=== PATIENT | female | born 2000 | race Caucasian/White ===

== ENCOUNTER 2018-01-15 04:34 | Inpatient (IN) | payer OTHER ==
--- NOTE | 2018-01-15 04:48 | PDOC ---
Attending Attestation - Resident Resident Name: Loreta Arreola - ED Attending Attestation I have performed the following: I have examined & evaluated the patient, The case was reviewed & discussed with the resident, I agree w/resident's findings & plan - HPI HPI: 01/15/18 05:34 Pt has diffuse abd pain. Originally came with epigastric pain and vomiting after eating tacos. Now with pain all over and rebound. No dysuria and no flank pain, She is 15 weeks and this is her 1st . She states that sono in this preg revealed a normal fetus in her uterus. - Physicial Exam PE: 01/15/18 06:01 Agree with resident exam, except that pt has diffuse abd tenderness with rebound and guarding. Afebrile. - Medical Decision Making 01/15/18 06:13 Pt will be signed out to the day team. They can follow labs and get the proper sono imaging to figure out if pt has GB stones vs appy vs other pathology. I requested an official pelvic sono to visualize the fetus.
[2018-01-15] MEDS ORDERED: RANITIDINE HCL 150 MG/10 ML UNIT-DOSE PO ONE ×2 (05:06→05:34)
[2018-01-15] MEDS ORDERED: LIDOCAINE VISCOUS 2% ORAL/TOP 20 ML UNIT-DOSE CUP MM ONE (05:06)
[2018-01-15] MEDS ORDERED: MAG HYDROX/AL HYDROX/SIMETH 30 ML UNIT-DOSE CUP PO ONE (05:06)
[2018-01-15] MEDS ORDERED: MAG HYDROX/AL HYDROX/SIMETH 30 ML UNIT-DOSE CUP ONE (05:15)
[2018-01-15] MEDS ORDERED: ONDANSETRON *ODT* 4 MG TABLET SL ONE (05:20)
[2018-01-15] MEDS ORDERED: ONDANSETRON *ODT* 4 MG TABLET ONE (05:21)
[2018-01-15 05:35] LABS: HCG,QUALITATIVE URINE Positive
--- NOTE | 2018-01-15 05:35 | PDOC ---
History of Present Illness - General Chief Complaint: Pain Stated Complaint: 16 WEEKS /PAIN Time Seen by Provider: 01/15/18 04:44 - History of Present Illness Initial Comments: Osiris Camilo is an otherwise healthy 17yo woman at 16wks who presnts with acute onset of upper abdominal pain about an hour prior to arriving in the ED. She reports that she had been feeling well and was in bed, laying down, eating tacos when she started to have severe pain. She describes the pain as sharp, non-radiating, and 8-9/10 in intensity. She has associated nausea but denies episodes of vomiting at home, change in bowel habits, lower abdominal or back pain, vaginal discharge, vaginal bleeding/spotting, or dysuria. She has been following with OB and was told everything is going well with her . She takes vitamins at home and has not and any other recent issues. She has never had any similar pain in the past. Ms Camilo denies any other illness, and she has never had any abdominal surgeries. Past History - Past Medical History Allergies/Adverse Reactions: Allergies Allergy/AdvReac Type Severity Reaction Status Date / Time No Known Allergies Allergy Verified 01/15/18 05:13 - Reproductive History Is Patient Now?: Yes (#): 1 Para: 0 Therapeutic (s) & number: No Spontaneous : 0 - Suicide/Smoking/Psychosocial Hx Smoking History: Never smoked Information on smoking cessation initiated: No Hx Alcohol Use: No Drug/Substance Use Hx: No Review of Systems - Review of Systems Comments:: General: No fevers, no chills, no weight or appetite change, no malaise HEENT: No changes in vision, no changes in hearing, no congestion, no sore throat CV: No chest pain, no palpitations, no LE edema Pulm: No SOB, no cough, no wheezing GI: +Abd pain, vomiting. No change in bowel habits, no melena : No frequency, no urgency, no dysuria Musc: No back pain, no joint swelling, no recent injury Skin: No rash, no lesions, no erythema Endo: No excessive thirst, no heat/cold intolerance Heme: No unusual bruising or bleeding, no swollen glands Neuro: No syncope, no numbness/tingling, no focal weakness Vasc: No claudication Psych: No recent change in mood, no SI or HI *Physical Exam - Vital Signs Last Vital Signs Temp Pulse Resp BP Pulse Ox 98.2 F 76 20 110/60 98 01/15/18 04:45 01/15/18 04:45 01/15/18 04:45 01/15/18 04:45 01/15/18 04:45 - Physical Exam Comments: General: Comfortable, no acute distress HEENT: PERRL, EOMI, MMM, voice normal, normal neck ROM, no LAD Cards: RRR, no murmur appreciated Pulm: Comfortable on room air, clear to auscultation bilaterally Abd: Soft, nondistended, gravid. Epigastric and b/l upper abd TTP, R>L : No CVA tenderness Ext: Atraumatic. No LE edema. ROM intact. Strength 5/5 and equal bilaterally Vasc: Extremities WWP Skin: Normal color, no rashes or lesions Neuro: A&Ox3, CN grossly intact, normal speech, motor/sensory grossly intact and symmetric Psych: Mood appropriate to situation Moderate Sedation - Procedure Monitoring Vital Signs: Procedure Monitoring Vital Signs Temperature 98.2 F 01/15/18 04:45 Pulse Rate 76 01/15/18 04:45 Respiratory Rate 20 01/15/18 04:45 Blood Pressure 110/60 01/15/18 04:45 O2 Sat by Pulse Oximetry (%) 98 01/15/18 04:45 ED Treatment Course - LABORATORY CBC & Chemistry Diagram: 01/15/18 05:49 01/15/18 05:49 Medical Decision Making - Medical Decision Making 01/15/18 05:35 Osiris Camilo is a 17yo otherwise healthy woman at 16wks who presents with acute onset of upper abdominal pain that started an hour before presenting in the ED after eating tacos while in bed. She had an episode of bilious vomiting in the ED. - Differential includes gastritis, GERD/reflux, cholecystitis, pancreatitis. Given , cannot rule out appendicitis despite upper abdominal pain. - SL zofran for vomiting. Maalox and ranitidine for possible gastritis or reflux. - CBC, CMP, mag, phos, type and screen, coags, bHCG to evaluate for abnormalities and for possible surgical pathology - UA, urine preg, urine culture to verify and evaluate for abnormalities. - No vaginal bleeding, vaginal discharge, lower abdominal pain, or back pain concerning for miscarriage, infection, PID 01/15/18 06:13 - Bedside US completed. US showed good movement, FHR 138, estimated gestational age 17w0d by [employer]. - RUQ bedside US with suspicion for stone in the neck of the gallbladder, but pt did not tolerate exam well secondary to pain - 1L IVF ordered per Dr Patel. 1000mg IV acetaminophen for pain control - Nausea improved, no additional vomiting - US and RUQ US ordered, to be completed after ultrasound opens in the morning. 01/15/18 06:51 - Additional 1L IVF bolus ordered - Labs notable for WBC 12.7. Otherwise unremarkable. UA negative for UTI, urine preg positive. bHCG pending. - Will reassess pain after completing acetaminophen. May need additional pain control. Patient to be signed out to morning team for remainder of care. Dispo depending on US results. Seen and discussed with Dr Patel. Loreta Arreola PGY1 *DC/Admit/Observation/Transfer Diagnosis at time of Disposition: Abdominal pain - Referrals - Patient Instructions - Post Discharge Activity
[2018-01-15 05:36] LABS: URINE APPEARANCE CLEAR; URINE BILIRUBIN NEGATIVE (<2.0 mg/dL); URINE COLOR YELLOW; URINE GLUCOSE (UA) NEGATIVE (NEGATIVE); URINE KETONE NEGATIVE (NEGATIVE); URINE LEUK ESTERASE TRACE (NEGATIVE); URINE NITRITE NEGATIVE (NEGATIVE); URINE PROTEIN NEGATIVE (NEGATIVE); URINE UROBILINOGEN NEGATIVE mg/dL (0.2-1.0)
[2018-01-15] MEDS ORDERED: SODIUM CHLORIDE 0.9% 500 ML INFUS.BAG IV ONE ×2 (05:36→06:43)
[2018-01-15 05:39] LABS: EPI CELLS RARE /HPF (FEW); URINE BACTERIA RARE /hpf (NONE SEEN); URINE MUCUS RARE
[2018-01-15 06:01] LABS: BASO % 0.2 % (0-2.0); EOS % 0.3 % (0-4.5); HEMATOCRIT 34.2 % (32.4-45.2); HEMOGLOBIN 11.5 GM/dL (10.7-15.3); LYMPH % 10.8 % (8-40); MCH 28.7 pg (25.7-33.7); MCHC 33.6 g/dl (32.0-36.0); MEAN CELL VOLUME 85.3 fl (80-96); MEAN PLT VOLUME 9.4 fl (7.5-11.1); MONO % 3.9 % (3.8-10.2); NEUT % 84.8 % (42.8-82.8); PLATELET COUNT 217 K/MM3 (134-434); RBC 4.01 M/mm3 (3.60-5.2); RDW 13.3 % (11.6-15.6); WHITE BLOOD COUNT 12.7 K/mm3 (4.0-10.0)
[2018-01-15] MEDS ORDERED: ACETAMINOPHEN 1000 MG/100 ML VIAL (NON FORMULARY) IVPB ONE (06:10)
[2018-01-15 06:11] LABS: INR 0.99 (0.83-1.09); PROTHROMBIN TIME (PATIENT) 11.7 SEC (9.7-13.0)
[2018-01-15 06:14] LABS: ACTIVATED PTT 25.4 SECONDS (25.2-36.5)
[2018-01-15 06:23] LABS: ALBUMIN 3.3 g/dl (3.4-5.0); ALK PHOS 62 U/L (45-117); ANION GAP 12 MMOL/L (8-16); BILIRUBIN,TOTAL 0.2 mg/dL (0.2-1); BLOOD UREA NITROGEN 8 mg/dL (7-18); CALCIUM 8.5 mg/dL (8.5-10.1); CHLORIDE 105 mmol/L (98-107); CO2 21 mmol/L (21-32); CREATININE 0.5 mg/dL (0.55-1.3); GLUCOSE,RANDOM 122 mg/dL (74-106); MAGNESIUM 1.8 mg/dL (1.8-2.4); POTASSIUM 3.8 mmol/L (3.5-5.1); SGOT/AST 7 U/L (15-37); SGPT/ALT 19 U/L (13-61); SODIUM 137 mmol/L (136-145); TOT PROT 7.1 g/dl (6.4-8.2)
[2018-01-15] MEDS ORDERED: ACETAMINOPHEN INJECTION 100 ML IVPB ONE (06:40)
--- NOTE | 2018-01-15 07:13 | PDOC ---
*Physical Exam - Vital Signs Last Vital Signs Temp Pulse Resp BP Pulse Ox 98.2 F 76 20 110/60 98 01/15/18 04:45 01/15/18 04:45 01/15/18 04:45 01/15/18 04:45 01/15/18 04:45 ED Treatment Course - LABORATORY CBC & Chemistry Diagram: 01/15/18 05:49 01/15/18 05:49 - ADDITIONAL ORDERS Additional order review: Laboratory Results 01/15/18 01/15/18 01/15/18 05:49 05:49 04:45 PT with INR 11.70 INR 0.99 PTT (Actin FS) 25.4 Sodium 137 Potassium 3.8 Chloride 105 Carbon Dioxide 21 Anion Gap 12 BUN 8 Creatinine 0.5 L Creat Clearance w eGFR > 60 Random Glucose 122 H Calcium 8.5 Phosphorus 4.0 Magnesium 1.8 Total Bilirubin 0.2 AST 7 L ALT 19 Alkaline Phosphatase 62 Total Protein 7.1 Albumin 3.3 L Urine Color Yellow Urine Appearance Clear Urine pH 6.0 Ur Specific Brandon 1.018 Urine Protein Negative Urine Glucose (UA) Negative Urine Ketones Negative Urine Blood Negative Urine Nitrite Negative Urine Bilirubin Negative Urine Urobilinogen Negative Ur Leukocyte Esterase Trace Urine WBC (Auto) 3 Urine RBC (Auto) 1 Ur Epithelial Cells Rare Urine Bacteria Rare Urine Mucus Rare Urine HCG, Qual Positive 01/15/18 05:49 RBC 4.01 MCV 85.3 MCHC 33.6 RDW 13.3 MPV 9.4 Neutrophils % 84.8 H Lymphocytes % 10.8 Monocytes % 3.9 Eosinophils % 0.3 Basophils % 0.2 - Medications Given in the ED: ED Medications Discontinued Medications Generic Name Dose Route Start Last Admin Trade Name Alesha PRN Reason Stop Dose Admin Acetaminophen 1,000 mg 01/15/18 06:10 01/15/18 06:46 Ofirmev Injection - IVPB 01/15/18 06:11 1,000 mg ONCE ONE Administration Al Hydroxide/Mg Hydroxide 30 ml 01/15/18 05:06 01/15/18 05:22 Mylanta Oral Suspension - PO 01/15/18 05:07 30 ml ONCE ONE Administration Ondansetron HCl 4 mg 01/15/18 05:20 01/15/18 05:22 Zofran Odt - SL 01/15/18 05:21 4 mg ONCE ONE Administration Ranitidine HCl 150 mg 01/15/18 05:34 01/15/18 05:54 Zantac Oral Solution - PO 01/15/18 05:35 150 mg ONCE ONE Administration Sodium Chloride 1,000 ml 01/15/18 05:36 01/15/18 05:54 Normal Saline - IV 01/15/18 05:37 1,000 ml ONCE ONE Administration Sodium Chloride 1,000 ml 01/15/18 06:43 01/15/18 06:47 Normal Saline - IV 01/15/18 06:44 1,000 ml ONCE ONE Administration Medical Decision Making - Medical Decision Making 01/15/18 07:[address] Arreola. Ms. Camilo is a 17 yo at 16 weeks w/ full care who presented for evaluation of upper abdominal pain after eating tacos last night. Patient given zofran, maalox, ranitidine, acetaminophen by prior team. Bedside US revealed concern for cholecystitis. Formal US ordered. 01/15/18 08:12 Patient currently pending US evaluation. 01/15/18 09:46 US significant for multiple gall stones with sludge noted. Given patients excessive pain and status will admit for pain control and surgery consult. US negative for acute process. 16w 3d fetus noted w/ HR 142. 01/15/18 09:49 Hospitalist and Surgery paged for consult. 01/15/18 09:58 Patient admitted for pain control and further follow-up. 01/15/18 10:11 Discussed with surgery who recommended rocephin for prophylaxis and will consult. Will comply with recommendations. *DC/Admit/Observation/Transfer Diagnosis at time of Disposition: Biliary colic Abdominal pain Qualifiers: Abdominal location: unspecified location Qualified Code(s): R10.9 - Unspecified abdominal pain - Discharge Dispostion Decision to Admit order: Yes - Referrals Referrals: Yadiel Giron MD [Primary Care Provider] - - Patient Instructions - Post Discharge Activity
[2018-01-15] MEDS ORDERED: morphine CARPU-JECT 2 MG/1 ML DISP.SYRIN IVPUSH ONE (09:48)
[2018-01-15] MEDS ORDERED: ONDANSETRON 4 MG/2 ML VIAL IVPUSH PRN (10:01)
[2018-01-15] MEDS ORDERED: ACETAMINOPHEN 1000 MG/100 ML VIAL (NON FORMULARY) IVPB PRN (10:02)
--- NOTE | 2018-01-15 10:22 | HP ---
Admitting History and Physical - Admission Chief Complaint: Rt UQ abd pain History of Present Illness: 17 yrs old F 16 wks lives with family present to ED with sudden onset sever RT UQ and epigastric pain started this am , last night patient ate Tacos and slept comfortably pain was sever 10/10 radites to back associated with nause and vomiting vomited 3-4 time billipis fluid no diarrhea, hemetmesis or melena, lasy BM was yesterday.No fever, chills or dysuria. In the ED w/u shows multiple gall stone normal CBD no clinical signs of acutecholycystitis. History Source: Patient - Past Medical History ...LMP: 09/12/17 ...: Yes - Past Surgical History Past Surgical History: Yes: Appendectomy - Smoking History Smoking history: Never smoked - Alcohol/Substance Use Hx Alcohol Use: No - Social History Usual Living Arrangement: Yes: With Spouse History of Recent Travel: No Home Medications - Allergies Allergies/Adverse Reactions: Allergies Allergy/AdvReac Type Severity Reaction Status Date / Time No Known Allergies Allergy Verified 01/15/18 05:13 - Home Medications Home Medications: Ambulatory Orders No122/Iron/Folic Acid [ Multi Tablet] 1 each PO DAILY 01/15/18 Family Disease History - Family Disease History Family History: Unremarkable Review of Systems - Review of Systems Constitutional: denies: Chills, Diaphoresis, Fever, Lethargy Eyes: denies: Blind Spots, Blurred Vision HENT: denies: Difficult Swallowing, Ear Discharge, Ear Pain Neck: denies: Decreased ROM, Lumps, Pain on Movement Cardiovascular: denies: Chest Pain, Edema Respiratory: denies: Cough, Exercise Intolerance Gastrointestinal: reports: Abdominal Pain, Nausea, Vomiting. denies: Diarrhea Genitourinary: denies: Burning, Discharge Musculoskeletal: denies: Back Pain, Decreased ROM Integumentary: denies: Blister, Bruising Neurological: denies: Change in LOC, Change in Speech, Confusion Endocrine: denies: Excessive Sweating, Flushing Psychiatric: denies: Altered Sleep Pattern, Anxiety, Depression Pain Intensity: 6 Physical Examination Vital Signs: Vital Signs Temperature 98 F 01/15/18 07:30 Pulse Rate 78 01/15/18 07:30 Respiratory Rate 18 01/15/18 07:30 Blood Pressure 120/66 01/15/18 07:30 O2 Sat by Pulse Oximetry (%) 100 01/15/18 07:30 Constitutional: Yes: Well Nourished, No Distress HENT: Yes: Atraumatic, Normocephalic, Other (MM moist no anemia no PERRLA EOMI) Neck: Yes: Supple, Trachea Midline. No: Decreased ROM, Lymphadenopathy Cardiovascular: Yes: Regular Rate and Rhythm, S1, S2. No: Bruit, JVD, Gallop, Murmur Respiratory: Yes: Regular, CTA Bilaterally Gastrointestinal: Yes: Normal Bowel Sounds, Tenderness, Epigastrium, Tenderness , Rebound Renal/: No: Bladder Distention Musculoskeletal: No: Back Pain, Joint Stiffness Extremities: No: Calf Tenderness Edema: No Peripheral Pulses: Left Doralis Pedis: 2+, Right Dorsalis Pedis: 2+ Neurological: Yes: Alert, Oriented ...Motor Strength: LUE, LLE, RUE, RLE Labs: CBC, BMP 01/15/18 05:49 01/15/18 05:49 CBC,CMP WBC 12.7 K/mm3 (4.0-10.0) H 01/15/18 05:49 RBC 4.01 M/mm3 (3.60-5.2) 01/15/18 05:49 Hgb 11.5 GM/dL (10.7-15.3) 01/15/18 05:49 Hct 34.2 % (32.4-45.2) 01/15/18 05:49 MCV 85.3 fl (80-96) 01/15/18 05:49 MCH 28.7 pg (25.7-33.7) 01/15/18 05:49 MCHC 33.6 g/dl (32.0-36.0) 01/15/18 05:49 RDW 13.3 % (11.6-15.6) 01/15/18 05:49 Plt Count 217 K/MM3 (134-434) 01/15/18 05:49 MPV 9.4 fl (7.5-11.1) 01/15/18 05:49 Absolute Neuts (auto) 10.8 K/mm3 (1.5-8.0) H 01/15/18 05:49 Neutrophils % 84.8 % (42.8-82.8) H 01/15/18 05:49 Lymphocytes % 10.8 % (8-40) 01/15/18 05:49 Monocytes % 3.9 % (3.8-10.2) 01/15/18 05:49 Eosinophils % 0.3 % (0-4.5) 01/15/18 05:49 Basophils % 0.2 % (0-2.0) 01/15/18 05:49 Nucleated RBC % 0 % (0-0) 01/15/18 05:49 Sodium 137 mmol/L (136-145) 01/15/18 05:49 Potassium 3.8 mmol/L (3.5-5.1) 01/15/18 05:49 Chloride 105 mmol/L (98-107) 01/15/18 05:49 Carbon Dioxide 21 mmol/L (21-32) 01/15/18 05:49 Anion Gap 12 MMOL/L (8-16) 01/15/18 05:49 BUN 8 mg/dL (7-18) 01/15/18 05:49 Creatinine 0.5 mg/dL (0.55-1.3) L 01/15/18 05:49 Creat Clearance w eGFR > 60 (>60) 01/15/18 05:49 Random Glucose 122 mg/dL (74-106) H 01/15/18 05:49 Calcium 8.5 mg/dL (8.5-10.1) 01/15/18 05:49 Phosphorus 4.0 mg/dL (2.5-4.9) 01/15/18 05:49 Magnesium 1.8 mg/dL (1.8-2.4) 01/15/18 05:49 Total Bilirubin 0.2 mg/dL (0.2-1) 01/15/18 05:49 AST 7 U/L (15-37) L 01/15/18 05:49 ALT 19 U/L (13-61) 01/15/18 05:49 Alkaline Phosphatase 62 U/L (45-117) 01/15/18 05:49 Creatine Kinase 30 IU/L (26-192) 01/15/18 05:49 Troponin I < 0.02 ng/ml (0.00-0.05) 01/15/18 05:49 Total Protein 7.1 g/dl (6.4-8.2) 01/15/18 05:49 Albumin 3.3 g/dl (3.4-5.0) L 01/15/18 05:49 Beta HCG, Quant 8696.3 mIU/ml 01/15/18 05:49 Imaging - Results Ultrasound: Report Reviewed (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 Code(s): K80.50 - CALCULUS OF BILE DUCT W/O CHOLANGITIS OR CHOLECYST W/O OBST (2) Nausea & vomiting Code(s): R11.2 - NAUSEA WITH VOMITING, UNSPECIFIED (3) Obesity (BMI 30.0-34.9) Assessment/Plan: Nutrition consult Code(s): E66.9 - OBESITY, UNSPECIFIED
[2018-01-15] MEDS ORDERED: MORPHINE SULFATE 2 MG/ML VIAL ONE (10:28)
[2018-01-15] MEDS ORDERED: FAMOTIDINE 20 MG/50 ML IVPB 0 MG/0 ML MG IVPB ONE (10:28)
[2018-01-15 10:37] LABS: LIPASE 141 U/L (73-393)
[2018-01-15] MEDS ORDERED: CEFTRIAXONE 1 GM in DEXTROSE 5%-WATER - 50 ML IVPB ONE (11:00)
[2018-01-15] MEDS ORDERED: CEFTRIAXONE 1 GM/50 ML BAG ONE (11:18)
[2018-01-15] MEDS: D5-1/2NS+10 MEQ KCL - 10 MEQ/1,000 ML INFUS.BAG IV SCH ×2 (11:28→22:45)
--- NOTE | 2018-01-15 17:26 | PN ---
Progress Note (short form) - Note Progress Note: surgery pt seen and examined. full consult dictated. 17f 16weeks with ruq abd pain. wbc 12. lfts normal. u/s unremarkable except gallstones. on exam abd is soft, localized ruq tenderness with rebound Plan- clinically acute cholecystitis. recommend HIDA or CT for better evaluation but patient refuses because of radiation risk to fetus. Agree with medical management. agree with rocephin. Would keep npo today and possible advance diet to low fat as pain improves. Can consider surgery now but patient faces risk to and not agreeable. cont medical management. suggest elective cholecystectomy after delivery. I am available for cholecystectomy if patient wants surgery at this time. This could be done at [facility] since the fetus in not viable. Once fetus is viable surgery should only be done at a tertiary care center.
--- NOTE | 2018-01-15 18:05 | CONS ---
DATE OF CONSULTATION: 01/15/2018 REASON FOR CONSULTATION: Acute cholecystitis, cholelithiasis. This is an emergency room consultation at the request of the emergency room physician. The patient was subsequently seen and examined in the emergency room. BRIEF HISTORY: This is a 17-year-old female who is currently 16 weeks , who presents with severe right upper quadrant pain radiating to her back. She also had nausea and vomiting. Her laboratories were unremarkable with the exception of an elevated white blood cell count of 12,000 and she went for an ultrasound of her gallbladder, which showed gallstones without thickening or pericholecystic fluid. Because of the right upper quadrant tenderness, a request was made for surgical evaluation and my recommendations were to start her on Rocephin antibiotic for possible acute cholecystitis. The patient states her pain is somewhat better, but still present. PAST MEDICAL HISTORY: Otherwise negative. PAST SURGICAL HISTORY: Significant for an appendectomy done laparoscopically. SOCIAL HISTORY: Negative for alcohol, negative for tobacco. HOME MEDICATIONS: vitamins. She has no known drug allergies. FAMILY HISTORY: Negative for malignancy in immediate family. REVIEW OF SYSTEMS: General: She denies fatigue or malaise. Cardiac: She denies chest pain or palpitations. Respiratory: She denies shortness of breath or wheeze. Gastrointestinal: As stated in HPI. Denies blood in her vomit, denies diarrhea, denies blood in her stool. Genitourinary: She denies dysuria. Musculoskeletal: She admits to back pain, but she states that is usual for her . Psychiatric: She denies anxiety, depression, or hearing voices. PHYSICAL EXAMINATION: General: This is a well-developed, well-nourished 17-year-old female in no distress. Vital Signs: She is afebrile. Her vital signs are stable. HEENT: Her head is normocephalic. Sclerae anicteric. Neck: Supple. Chest: Clear. Abdomen: Soft. She has localized right upper quadrant tenderness with a positive Deutsch sign. There is rebound in the right upper quadrant. The remainder of her abdominal examination is benign with the exception of fullness, suprapubic, consistent with her . She has well-healed laparoscopic scars. Extremities: She has trace edema. REVIEW OF LABORATORY: Her liver function tests are normal. Her white blood cell count is 12,000. IMAGING: As stated in HPI. ASSESSMENT: A 17-year-old female with right upper quadrant pain, nausea, and vomiting with right upper quadrant tenderness with rebound and ultrasound showing gallstones as well as a distended gallbladder without sonographic signs of acute cholecystitis. Clinically, I suspect this is acute cholecystitis, as her symptoms have lasted more than 6 hours and she does have localized tenderness with mild peritoneal findings in the right upper quadrant; however, another diagnosis can be missed in and, therefore, patient has been offered a CT scan as well as a HIDA scan. She declines both of these options because of radiation risk of exposure to her fetus. She understands that if we misdiagnose a serious infection that she has risk of sepsis, even . At this point, she appears to be clinically well. Would continue Rocephin antibiotic and treat medically for acute cholecystitis. I have also offered her surgery for her acute cholecystitis, which is feasible in the 2nd trimester; however, there is always a risk of loss of the . Because of this, patient is currently declining surgery and wishes to attempt medical management. If medical management is successful, patient should consider a cholecystectomy as an outpatient after delivery. If she changes her mind and wishes to undergo surgery, I am available for cholecystectomy; however, in the future, once she enters the 3rd trimester, any surgery, if necessary, should be done at a tertiary care center, as if the fetus is delivered, she would need to be somewhere where they have ICU capability. In either event, continue IV antibiotic. Another option would be percutaneous drainage of her gallbladder, which she also declines because she states she does not wish to have a drain. At this point, will allow her to be treated medically and be available if she wishes to have surgery now; otherwise, we will see as an outpatient. Keep her n.p.o. today and possibly advance to a low-fat diet over the next 1 to 2 days, pending clinical course. DO BERNARDA ORTIZ/[id number]
[2018-01-15] MEDS: FAMOTIDINE 20 MG/50 ML IVPB 20 MG/50 ML MG IVPB SCH (21:17)
[2018-01-16 01:59] VITALS: BMI 33.0
[2018-01-16 07:37] LABS: BASO % 0.4 % (0-2.0); EOS % 0.8 % (0-4.5); HEMOGLOBIN 10.7 GM/dL (10.7-15.3); MCH 29.2 pg (25.7-33.7); MCHC 33.6 g/dl (32.0-36.0); MEAN CELL VOLUME 86.8 fl (80-96); MONO % 6.5 % (3.8-10.2); NEUT % 75.3 % (42.8-82.8); PLATELET COUNT 213 K/MM3 (134-434); RBC 3.68 M/mm3 (3.60-5.2); RDW 13.4 % (11.6-15.6); WHITE BLOOD COUNT 9.9 K/mm3 (4.0-10.0)
[2018-01-16 08:31] LABS: ALBUMIN 2.7 g/dl (3.4-5.0); ALK PHOS 56 U/L (45-117); ANION GAP 10 MMOL/L (8-16); BILIRUBIN,TOTAL 0.6 mg/dL (0.2-1); BLOOD UREA NITROGEN 4 mg/dL (7-18); CALCIUM 7.8 mg/dL (8.5-10.1); CHLORIDE 106 mmol/L (98-107); CO2 21 mmol/L (21-32); CREATININE 0.5 mg/dL (0.55-1.3); GLUCOSE,RANDOM 84 mg/dL (74-106); POTASSIUM 3.6 mmol/L (3.5-5.1); SGOT/AST 15 U/L (15-37); SGPT/ALT 19 U/L (13-61); SODIUM 137 mmol/L (136-145); TOT PROT 6.3 g/dl (6.4-8.2)
[2018-01-16] MEDS ORDERED: FLU VACCINE QUAD 60 MCG/0.5 ML (MDV 18-19) IM ONE (10:00)
[2018-01-16] MEDS: D5-1/2NS+10 MEQ KCL - 10 MEQ/1,000 ML INFUS.BAG IV SCH (10:00)
[2018-01-16] MEDS: FAMOTIDINE 20 MG/50 ML IVPB 20 MG/50 ML MG IVPB SCH ×2 (10:00→22:49)
--- NOTE | 2018-01-16 10:57 | CON.ORTH ---
Consult Reason for Consultation:: back pain - Past Medical History ...LMP: 09/12/17 ...: Yes - Past Surgical History Past Surgical History: Yes: Appendectomy - Alcohol/Substance Use Hx Alcohol Use: No - Smoking History Smoking history: Never smoked - Social History History of Recent Travel: No Home Medications - Allergies Allergies/Adverse Reactions: Allergies Allergy/AdvReac Type Severity Reaction Status Date / Time No Known Allergies Allergy Verified 01/15/18 05:13 - Home Medications Home Medications: Ambulatory Orders No122/Iron/Folic Acid [ Multi Tablet] 1 each PO DAILY 01/15/18 Physical Exam for Ortho Vital Signs: Vital Signs Temperature 98.2 F 01/16/18 09:00 Pulse Rate 81 01/16/18 09:00 Respiratory Rate 18 01/16/18 09:00 Blood Pressure 119/40 L 01/16/18 09:00 O2 Sat by Pulse Oximetry (%) 99 01/16/18 10:00 Labs: CBC, BMP 01/16/18 06:25 01/16/18 06:25 INR, PTT INR 0.99 (0.83-1.09) 01/15/18 05:49 - Lower Extremity Pelvis: Yes: Exam WNL - Affected Extremity Peripheral Pulses WNL: Yes Neuro/Vascular Assessment: Yes: Warm, [place], Normal Sensation (TS/LS spine- WNL, nvi) Assessment/Plan 17 yrs old F 16 wks lives with family present to ED with sudden onset sever RT UQ and epigastric pain started this am , last night patient ate Tacos and slept comfortably pain was sever 10/10 radiates to back associated with nausea and vomiting vomited 3-4 time billiis fluid no diarrhea, hemetmesis or melena, last BM was yesterday.No fever, chills or dysuria. In the ED w/u shows multiple gall stone normal CBD no clinical signs of acute cholecystitis. Currently denies any back pain, numbness tingling, bowel/bladder dysfunction. a/p cholecystitis with radiating back pain- improving NTD Orthopedically stable re-consult prn d/w Dr. Boss
[2018-01-16] MEDS ORDERED: cefTRIAXone SODIUM 1 GM VIAL ONE (15:29)
[2018-01-16] MEDS ORDERED: DEXTROSE 5%-WATER - 50 ML IVPB ONE (15:29)
--- NOTE | 2018-01-16 15:36 | PN ---
Teaching Attending Note Name of Resident: Tru Richards ATTENDING PHYSICIAN STATEMENT I saw and evaluated the patient. I reviewed the resident's note and discussed the case with the resident. I agree with the resident's findings and plan as documented. SUBJECTIVE: Patient reports RUQ pain. She denies nausea, chills. OBJECTIVE: Vital Signs Period Temp Pulse Resp BP Sys/Wilson Pulse Ox Last 24 Hr 97.8 F-98.7 F 71-90 18-18 100-120/40-74 98-99 HEART: S1S2, RRR LUNGS: Clear ABDOMEN: Soft, non-distended, (+) RUQ tenderness, normal BS EXTREMITIES: No edema Laboratory Results - last 24 hr 01/16/18 01/16/18 01/16/18 06:25 06:25 06:25 WBC 9.9 RBC 3.68 Hgb 10.7 Hct 32.0 L MCV 86.8 MCH 29.2 MCHC 33.6 RDW 13.4 Plt Count 213 MPV 10.0 Absolute Neuts (auto) 7.5 Neutrophils % 75.3 Lymphocytes % 17.0 D Monocytes % 6.5 Eosinophils % 0.8 D Basophils % 0.4 Nucleated RBC % 0 Sodium 137 Potassium 3.6 Chloride 106 Carbon Dioxide 21 Anion Gap 10 BUN 4 L Creatinine 0.5 L Creat Clearance w eGFR > 60 Random Glucose 84 Hemoglobin A1c % 4.7 Calcium 7.8 L Total Bilirubin 0.6 AST 15 ALT 19 Alkaline Phosphatase 56 Total Protein 6.3 L Albumin 2.7 L Current Medications Generic Name Dose Route Start Last Admin Trade Name Freq PRN Reason Stop Dose Admin Acetaminophen 1,000 mg 01/15/18 10:02 Ofirmev Injection - IVPB Q8H PRN PAIN Potassium Chloride/Dextrose/Sod Cl 10 meq in 1,000 mls @ 100 mls/hr 01/15/18 10:15 01/16/18 10:00 D5-1/2ns+10 Meq Kcl - IV 100 mls/hr ASDIR SHELBI Administration Famotidine/Sodium Chloride 20 mg in 50 mls @ 100 mls/hr 01/15/18 22:00 10:00 Pepcid 20 Mg Premixed Ivpb - IVPB 100 mls/hr BID SHELBI Administration Ceftriaxone Sodium 1 gm/ 50 mls @ 100 mls/hr 01/16/18 15:00 Dextrose IVPB DAILY SHELBI Protocol Metronidazole 500 mg in 100 mls @ 100 mls/hr 01/16/18 14:30 Flagyl 500mg Premixed Ivpb - IVPB Q8H-IV SHELBI Ondansetron HCl 4 mg 01/15/18 10:01 Zofran Injection IVPUSH Q6H PRN NAUSEA ASSESSMENT AND PLAN: This is a 17 year old woman, 16 weeks gestation, with no significant medical history who presented to the ED with abdominal pain and nausea. 1. Acute cholecystitis - Patient refused CT, HIDA because of concern about effects of radiation on - WBC improved, afebrile - Continue Rocephin and add Flagyl - Continue NPO, IV fluid - Pain control - Patient considering cholecystectomy on this admission vs elective after delivery
[2018-01-16] MEDS: CEFTRIAXONE 1 GM in DEXTROSE 5%-WATER - 50 ML IVPB SCH (16:05)
[2018-01-16] MEDS ORDERED: morphine CARPU-JECT 2 MG/1 ML DISP.SYRIN IVPUSH PRN (16:19)
[2018-01-16] MEDS ORDERED: MORPHINE SULFATE 2 MG/ML VIAL IVPUSH PRN (17:02)
--- NOTE | 2018-01-16 17:12 | PN ---
Physical Exam: SUBJECTIVE: Patient seen and examined at bedside. No overnight events. Continues to have RUQ pain. Denies CP,PALUMBO,SOB, palpitations, nausea or vomiting. OBJECTIVE: Vital Signs Period Temp Pulse Resp BP Sys/Wilson Pulse Ox Last 24 Hr 97.8 F-98.7 F 71-90 18-18 100-120/40-74 98-99 GENERAL: AAOx3 , mild distress HEAD: NCAT EYES: PERRL, EOMI, sclera anicteric, conjunctiva clear. No ptosis. ENT: moist mucous membranes. LUNGS: CTAB, no wheezes, no crackles, no accessory muscle use. HEART:RRR, S1, S2 without murmur, rub or gallop. ABDOMEN: Soft, RUQ tenderness, normoactive bowel sounds, no guarding, no rebound , Gravid uterus. EXTREMITIES: 2+ pulses, warm, well-perfused, no edema. NEUROLOGICAL: Cranial nerves II through XII grossly intact. Normal speech, gait not observed. PSYCH: Normal mood, normal affect. SKIN: Warm, dry, normal turgor, no rashes or lesions noted Laboratory Results - last 24 hr 01/16/18 01/16/18 01/16/18 06:25 06:25 06:25 WBC 9.9 RBC 3.68 Hgb 10.7 Hct 32.0 L MCV 86.8 MCH 29.2 MCHC 33.6 RDW 13.4 Plt Count 213 MPV 10.0 Absolute Neuts (auto) 7.5 Neutrophils % 75.3 Lymphocytes % 17.0 D Monocytes % 6.5 Eosinophils % 0.8 D Basophils % 0.4 Nucleated RBC % 0 Sodium 137 Potassium 3.6 Chloride 106 Carbon Dioxide 21 Anion Gap 10 BUN 4 L Creatinine 0.5 L Creat Clearance w eGFR > 60 Random Glucose 84 Hemoglobin A1c % 4.7 Calcium 7.8 L Total Bilirubin 0.6 AST 15 ALT 19 Alkaline Phosphatase 56 Total Protein 6.3 L Albumin 2.7 L Active Medications Generic Name Dose Route Start Last Admin Trade Name Freq PRN Reason Stop Dose Admin Acetaminophen 1,000 mg 01/15/18 10:02 Ofirmev Injection - IVPB Q8H PRN PAIN Potassium Chloride/Dextrose/Sod Cl 10 meq in 1,000 mls @ 100 mls/hr 01/15/18 10:15 01/16/18 10:00 D5-1/2ns+10 Meq Kcl - IV 100 mls/hr ASDIR SHELBI Administration Famotidine/Sodium Chloride 20 mg in 50 mls @ 100 mls/hr 01/15/18 22:00 10:00 Pepcid 20 Mg Premixed Ivpb - IVPB 100 mls/hr BID SHELBI Administration Ceftriaxone Sodium 1 gm/ 50 mls @ 100 mls/hr 01/16/18 15:00 01/16/18 16:05 Dextrose IVPB 100 mls/hr DAILY SHELBI Administration Protocol Metronidazole 500 mg in 100 mls @ 100 mls/hr 01/16/18 14:30 Flagyl 500mg Premixed Ivpb - IVPB Q8H-IV SHELBI Morphine Sulfate 1 mg 01/16/18 17:02 Morphine Sulfate IVPUSH Q6H PRN PAIN LEVEL 7 - 10 Ondansetron HCl 4 mg 01/15/18 10:01 Zofran Injection IVPUSH Q6H PRN NAUSEA ASSESSMENT/PLAN: Problem List - Problems (1) Biliary colic Assessment/Plan: * NPO * Zofran for nausea * IVF with D5 1/2NS * Pain control 1 mg Morphine IV Q6h (2) 16 weeks gestation of Visit type - Emergency Visit Emergency Visit: Yes ED Registration Date: 01/15/18 Care time: The patient presented to the Emergency Department on the above date and was hospitalized for further evaluation of their emergent condition. - New Patient This patient is new to me today: Yes Date on this admission: 01/16/18 - Critical Care Critical Care patient: No
[2018-01-17] MEDS: D5-1/2NS+10 MEQ KCL - 10 MEQ/1,000 ML INFUS.BAG IV SCH ×2 (01:03→10:30)
[2018-01-17 07:06] LABS: BASO % 0.4 % (0-2.0); EOS % 1.5 % (0-4.5); HEMATOCRIT 30.5 % (32.4-45.2); HEMOGLOBIN 10.3 GM/dL (10.7-15.3); LYMPH % 16.3 % (8-40); MCH 29.2 pg (25.7-33.7); MCHC 33.8 g/dl (32.0-36.0); MEAN CELL VOLUME 86.1 fl (80-96); MEAN PLT VOLUME 9.9 fl (7.5-11.1); MONO % 7.9 % (3.8-10.2); NEUT % 73.9 % (42.8-82.8); PLATELET COUNT 195 K/MM3 (134-434); RBC 3.54 M/mm3 (3.60-5.2); RDW 13.3 % (11.6-15.6); WHITE BLOOD COUNT 8.3 K/mm3 (4.0-10.0)
[2018-01-17 07:22] LABS: ALBUMIN 2.5 g/dl (3.4-5.0); ALK PHOS 57 U/L (45-117); ANION GAP 9 MMOL/L (8-16); BILIRUBIN,TOTAL 0.3 mg/dL (0.2-1); BLOOD UREA NITROGEN 4 mg/dL (7-18); CALCIUM 7.6 mg/dL (8.5-10.1); CHLORIDE 107 mmol/L (98-107); CO2 21 mmol/L (21-32); CREATININE 0.4 mg/dL (0.55-1.3); GLUCOSE,RANDOM 83 mg/dL (74-106); POTASSIUM 3.6 mmol/L (3.5-5.1); SGOT/AST 10 U/L (15-37); SGPT/ALT 15 U/L (13-61); SODIUM 137 mmol/L (136-145)
[2018-01-17] MEDS ORDERED: DEXTROSE 5%-WATER - 50 ML IVPB ONE (09:15)
[2018-01-17] MEDS ORDERED: cefTRIAXone SODIUM 1 GM VIAL ONE (09:15)
[2018-01-17] MEDS: CEFTRIAXONE 1 GM in DEXTROSE 5%-WATER - 50 ML IVPB SCH (09:36)
[2018-01-17] MEDS: FAMOTIDINE 20 MG/50 ML IVPB 20 MG/50 ML MG IVPB SCH ×2 (09:37→21:51)
--- NOTE | 2018-01-17 11:45 | PN ---
Teaching Attending Note Name of Resident: Tru Richards ATTENDING PHYSICIAN STATEMENT I saw and evaluated the patient. I reviewed the resident's note and discussed the case with the resident. I agree with the resident's findings and plan as documented. SUBJECTIVE: Patient continues to complain of RUQ abdominal pain. OBJECTIVE: Vital Signs Period Temp Pulse Resp BP Sys/Wilson Pulse Ox Last 24 Hr 98.2 F-98.3 F 76-84 18-20 96-114/47-74 99 HEART: S1S2, RRR LUNGS: Clear ABDOMEN: Soft, non-distended, (+) RUQ tenderness, normal BS EXTREMITIES: No edema Laboratory Results - last 24 hr 01/17/18 01/17/18 06:30 06:30 WBC 8.3 RBC 3.54 L Hgb 10.3 L Hct 30.5 L MCV 86.1 MCH 29.2 MCHC 33.8 RDW 13.3 Plt Count 195 MPV 9.9 Absolute Neuts (auto) 6.1 Neutrophils % 73.9 Lymphocytes % 16.3 Monocytes % 7.9 Eosinophils % 1.5 D Basophils % 0.4 Nucleated RBC % 0 Sodium 137 Potassium 3.6 Chloride 107 Carbon Dioxide 21 Anion Gap 9 BUN 4 L Creatinine 0.4 L Creat Clearance w eGFR > 60 Random Glucose 83 Calcium 7.6 L Total Bilirubin 0.3 AST 10 L ALT 15 Alkaline Phosphatase 57 Total Protein 6.0 L Albumin 2.5 L Current Medications Generic Name Dose Route Start Last Admin Trade Name Freq PRN Reason Stop Dose Admin Acetaminophen 1,000 mg 01/15/18 10:02 Ofirmev Injection - IVPB Q8H PRN PAIN Potassium Chloride/Dextrose/Sod Cl 10 meq in 1,000 mls @ 100 mls/hr 01/15/18 10:15 01/17/18 01:03 D5-1/2ns+10 Meq Kcl - IV 100 mls/hr ASDIR SHELBI Administration Famotidine/Sodium Chloride 20 mg in 50 mls @ 100 mls/hr 01/15/18 22:00 09:37 Pepcid 20 Mg Premixed Ivpb - IVPB 100 mls/hr BID SHELBI Administration Ceftriaxone Sodium 1 gm/ 50 mls @ 100 mls/hr 01/16/18 15:00 01/17/18 09:36 Dextrose IVPB 100 mls/hr DAILY SHELBI Administration Protocol Metronidazole 500 mg in 100 mls @ 100 mls/hr 01/16/18 14:30 01/17/18 09:37 Flagyl 500mg Premixed Ivpb - IVPB 100 mls/hr Q8H-IV SHELBI Administration Morphine Sulfate 1 mg 01/16/18 17:02 01/16/18 17:14 Morphine Sulfate IVPUSH 1 mg Q6H PRN Administration PAIN LEVEL 7 - 10 Ondansetron HCl 4 mg 01/15/18 10:01 Zofran Injection IVPUSH Q6H PRN NAUSEA ASSESSMENT AND PLAN: This is a 17 year old woman, 16 weeks gestation, with no significant medical history who presented to the ED with abdominal pain and nausea. 1. Acute cholecystitis - Patient refused CT, HIDA because of concern about effects of radiation on - WBC improved, afebrile - Continue Rocephin, Flagyl - Continue NPO, IV fluid - Pain control - Plan for elective cholecystectomy after delivery 2. 3. Disposition - Expect discharge home once pain is controlled and she is tolerating PO
--- NOTE | 2018-01-17 14:07 | PN ---
Progress Note (short form) - Note Progress Note: surgery pt seen and examined. states pain is much better. hungry afebrile abd- soft, minimal ruq tenderness Laboratory Tests 01/15/18 01/16/18 01/17/18 05:49 06:25 06:30 WBC 12.7 H 9.9 8.3 Plan- acute choleycstitis responding to medical managment. Pt wishes to avoid surgery if possible because of her . trial of clears. advance to low fat if tolerates. consider discharge on augmentin and pain meds if able to be advanced.
--- NOTE | 2018-01-17 15:53 | PN ---
Physical Exam: SUBJECTIVE: Patient seen and examined at bedside. No overnight events. No new complaints. She continues to have RUQ pain but improved and pain control is adequate. She thinks she can eat. Denies CP,PALUMBO, SOB, palpitations, fever or chills. OBJECTIVE: Vital Signs Period Temp Pulse Resp BP Sys/Wilson Pulse Ox Last 24 Hr 98.2 F-98.3 F 76-84 20-20 96-114/47-61 99-99 GENERAL: AAOx3 ,NAD HEAD: NCAT EYES: PERRL, EOMI, sclera anicteric, conjunctiva clear. No ptosis. ENT: moist mucous membranes. LUNGS: CTAB, no wheezes, no crackles, no accessory muscle use. HEART:RRR, S1, S2 without murmur, rub or gallop. ABDOMEN: Soft, RUQ tenderness, normoactive bowel sounds, no guarding, no rebound , Gravid uterus. EXTREMITIES: 2+ pulses, warm, well-perfused, no edema. NEUROLOGICAL: Cranial nerves II through XII grossly intact. Normal speech, gait not observed. PSYCH: Normal mood, normal affect. SKIN: Warm, dry, normal turgor, no rashes or lesions noted Laboratory Results - last 24 hr 01/17/18 01/17/18 06:30 06:30 WBC 8.3 RBC 3.54 L Hgb 10.3 L Hct 30.5 L MCV 86.1 MCH 29.2 MCHC 33.8 RDW 13.3 Plt Count 195 MPV 9.9 Absolute Neuts (auto) 6.1 Neutrophils % 73.9 Lymphocytes % 16.3 Monocytes % 7.9 Eosinophils % 1.5 D Basophils % 0.4 Nucleated RBC % 0 Sodium 137 Potassium 3.6 Chloride 107 Carbon Dioxide 21 Anion Gap 9 BUN 4 L Creatinine 0.4 L Creat Clearance w eGFR > 60 Random Glucose 83 Calcium 7.6 L Total Bilirubin 0.3 AST 10 L ALT 15 Alkaline Phosphatase 57 Total Protein 6.0 L Albumin 2.5 L Active Medications Generic Name Dose Route Start Last Admin Trade Name Freq PRN Reason Stop Dose Admin Acetaminophen 1,000 mg 01/15/18 10:02 Ofirmev Injection - IVPB Q8H PRN PAIN Potassium Chloride/Dextrose/Sod Cl 10 meq in 1,000 mls @ 100 mls/hr 01/15/18 10:15 01/17/18 10:30 D5-1/2ns+10 Meq Kcl - IV Not Given ASDIR SHELBI Famotidine/Sodium Chloride 20 mg in 50 mls @ 100 mls/hr 01/15/18 22:00 09:37 Pepcid 20 Mg Premixed Ivpb - IVPB 100 mls/hr BID SHELBI Administration Ceftriaxone Sodium 1 gm/ 50 mls @ 100 mls/hr 01/16/18 15:00 01/17/18 09:36 Dextrose IVPB 100 mls/hr DAILY SHELBI Administration Protocol Metronidazole 500 mg in 100 mls @ 100 mls/hr 01/16/18 14:30 01/17/18 09:37 Flagyl 500mg Premixed Ivpb - IVPB 100 mls/hr Q8H-IV SHELBI Administration Morphine Sulfate 1 mg 01/16/18 17:02 01/16/18 17:14 Morphine Sulfate IVPUSH 1 mg Q6H PRN Administration PAIN LEVEL 7 - 10 Ondansetron HCl 4 mg 01/15/18 10:01 Zofran Injection IVPUSH Q6H PRN NAUSEA ASSESSMENT/PLAN: Problem List - Problems (1) Biliary colic Assessment/Plan: * diet advanced to clear liquid * Seen by surgery again and does not want surgery at this time. * Zofran for nausea * IVF with D5 1/2NS * Pain control 1 mg Morphine IV Q6h (2) 16 weeks gestation of Assessment/Plan: vitamin. Visit type - Emergency Visit Emergency Visit: Yes ED Registration Date: 01/15/18 Care time: The patient presented to the Emergency Department on the above date and was hospitalized for further evaluation of their emergent condition. - New Patient This patient is new to me today: No - Critical Care Critical Care patient: No
[2018-01-17] MEDS: PRENATAL VITAMINS W/ FOLIC ACID TABLET (FP) PO SCH (18:34)
[2018-01-18] MEDS: D5-1/2NS+10 MEQ KCL - 10 MEQ/1,000 ML INFUS.BAG IV SCH ×2 (05:50→14:40)
[2018-01-18 07:40] LABS: BASO % 0.5 % (0-2.0); HEMATOCRIT 32.8 % (32.4-45.2); LYMPH % 21.5 % (8-40); MCH 28.6 pg (25.7-33.7); MCHC 33.4 g/dl (32.0-36.0); MEAN CELL VOLUME 85.6 fl (80-96); MEAN PLT VOLUME 9.6 fl (7.5-11.1); MONO % 7.6 % (3.8-10.2); NEUT % 68.4 % (42.8-82.8); PLATELET COUNT 208 K/MM3 (134-434); RBC 3.83 M/mm3 (3.60-5.2); WHITE BLOOD COUNT 7.3 K/mm3 (4.0-10.0)
[2018-01-18 07:56] LABS: ALBUMIN 2.6 g/dl (3.4-5.0); ALK PHOS 57 U/L (45-117); ANION GAP 8 MMOL/L (8-16); BILIRUBIN,TOTAL 0.3 mg/dL (0.2-1); BLOOD UREA NITROGEN 3 mg/dL (7-18); CHLORIDE 107 mmol/L (98-107); CO2 23 mmol/L (21-32); CREATININE 0.4 mg/dL (0.55-1.3); GLUCOSE,RANDOM 83 mg/dL (74-106); POTASSIUM 3.8 mmol/L (3.5-5.1); SGOT/AST 8 U/L (15-37); SGPT/ALT 19 U/L (13-61); SODIUM 138 mmol/L (136-145); TOT PROT 6.1 g/dl (6.4-8.2)
[2018-01-18] MEDS ORDERED: PT OWN MED DRAWER 7, Y5N ONE (10:08)
[2018-01-18] MEDS ORDERED: cefTRIAXone SODIUM 1 GM VIAL ONE (10:09)
[2018-01-18] MEDS ORDERED: DEXTROSE 5%-WATER - 50 ML IVPB ONE (10:09)
[2018-01-18] MEDS: FAMOTIDINE 20 MG/50 ML IVPB 20 MG/50 ML MG IVPB SCH ×2 (10:15→21:44)
[2018-01-18] MEDS: CEFTRIAXONE 1 GM in DEXTROSE 5%-WATER - 50 ML IVPB SCH (10:16)
[2018-01-18] MEDS: PRENATAL VITAMINS W/ FOLIC ACID TABLET (FP) PO SCH (10:17)
--- NOTE | 2018-01-18 11:07 | PN ---
Teaching Attending Note Name of Resident: Tru Richards ATTENDING PHYSICIAN STATEMENT I saw and evaluated the patient. I reviewed the resident's note and discussed the case with the resident. I agree with the resident's findings and plan as documented. SUBJECTIVE: Ms Camilo says she is feeling much better today than she was prior, however did have an episode of vomiting after eating this am. Questions if because she took medications on an empty stomach. Currently denies cp or sob. After vomiting, no longer feels nausea. OBJECTIVE: Gen: nad CV: rrr w/o m/r/g Pulm: ctab w/o w/r/r Abd: +bs, s/nt/nd Ext: no c/c/e ASSESSMENT AND PLAN: -patient feeling much improved -however with episode of emesis today -will monitor -continue rocephin and flagyl, transition to augmentin on discharge -continue IVF -if no further episodes of emesis, plan for d/c tomorrow Problem List - Problems (1) Biliary colic Code(s): K80.50 - CALCULUS OF BILE DUCT W/O CHOLANGITIS OR CHOLECYST W/O OBST (2) 16 weeks gestation of Code(s): Z3A.16 - 16 WEEKS GESTATION OF (3) Abdominal pain Code(s): R10.9 - UNSPECIFIED ABDOMINAL PAIN Qualifiers: Abdominal location: unspecified location Qualified Code(s): R10.9 - Unspecified abdominal pain (4) Nausea & vomiting Code(s): R11.2 - NAUSEA WITH VOMITING, UNSPECIFIED (5) Obesity (BMI 30.0-34.9) Code(s): E66.9 - OBESITY, UNSPECIFIED
--- NOTE | 2018-01-18 16:53 | PN ---
Physical Exam: SUBJECTIVE: Patient seen and examined at bedside. No overnight events. No new complaints. She continues to have RUQ pain but improved and pain control is adequate. Ate clear liquid breakfast and lunch with some pain. Denies CP,PALUMBO, SOB, palpitations, fever or chills. OBJECTIVE: Vital Signs Period Temp Pulse Resp BP Sys/Wilson Pulse Ox Last 24 Hr 97.4 F-98.7 F 69-85 18-20 96-107/46-61 99-99 GENERAL: AAOx3 ,NAD HEAD: NCAT EYES: PERRL, EOMI, sclera anicteric, conjunctiva clear. No ptosis. ENT: moist mucous membranes. LUNGS: CTAB, no wheezes, no crackles, no accessory muscle use. HEART:RRR, S1, S2 without murmur, rub or gallop. ABDOMEN: Soft, RUQ tenderness improved, normoactive bowel sounds, no guarding, no rebound, Gravid uterus. EXTREMITIES: 2+ pulses, warm, well-perfused, no edema. NEUROLOGICAL: Cranial nerves II through XII grossly intact. Normal speech, gait not observed. PSYCH: Normal mood, normal affect. SKIN: Warm, dry, normal turgor, no rashes or lesions noted Laboratory Results - last 24 hr 01/18/18 01/18/18 06:30 06:30 WBC 7.3 RBC 3.83 Hgb 11.0 Hct 32.8 MCV 85.6 MCH 28.6 MCHC 33.4 RDW 13.0 Plt Count 208 MPV 9.6 Absolute Neuts (auto) 5.0 Neutrophils % 68.4 Lymphocytes % 21.5 D Monocytes % 7.6 Eosinophils % 2.0 Basophils % 0.5 Nucleated RBC % 0 Sodium 138 Potassium 3.8 Chloride 107 Carbon Dioxide 23 Anion Gap 8 BUN 3 L Creatinine 0.4 L Creat Clearance w eGFR > 60 Random Glucose 83 Calcium 8.0 L Total Bilirubin 0.3 AST 8 L ALT 19 Alkaline Phosphatase 57 Total Protein 6.1 L Albumin 2.6 L Active Medications Generic Name Dose Route Start Last Admin Trade Name Freq PRN Reason Stop Dose Admin Acetaminophen 1,000 mg 01/15/18 10:02 Ofirmev Injection - IVPB Q8H PRN PAIN Potassium Chloride/Dextrose/Sod Cl 10 meq in 1,000 mls @ 100 mls/hr 01/15/18 10:15 01/18/18 14:40 D5-1/2ns+10 Meq Kcl - IV 100 mls/hr ASDIR SHELBI Administration Famotidine/Sodium Chloride 20 mg in 50 mls @ 100 mls/hr 01/15/18 22:00 10:15 Pepcid 20 Mg Premixed Ivpb - IVPB 100 mls/hr BID SHELBI Administration Ceftriaxone Sodium 1 gm/ 50 mls @ 100 mls/hr 01/16/18 15:00 01/18/18 10:16 Dextrose IVPB 100 mls/hr DAILY SHELBI Administration Protocol Metronidazole 500 mg in 100 mls @ 100 mls/hr 01/16/18 14:30 01/18/18 10:17 Flagyl 500mg Premixed Ivpb - IVPB 100 mls/hr Q8H-IV SHELBI Administration Morphine Sulfate 1 mg 01/16/18 17:02 01/16/18 17:14 Morphine Sulfate IVPUSH 1 mg Q6H PRN Administration PAIN LEVEL 7 - 10 Ondansetron HCl 4 mg 01/15/18 10:01 Zofran Injection IVPUSH Q6H PRN NAUSEA Multivit/Folic Acid/Iron 1 tab 01/17/18 16:00 01/18/18 10:17 Vitamins (Sjr) - PO 1 tab DAILY SHELBI Administration ASSESSMENT/PLAN: 17 year old woman, 16 weeks gestation, with no significant medical history who presented to the ED with abdominal pain and nausea. Problem List - Problems (1) Biliary colic Assessment/Plan: * diet advanced low fat * Seen by surgery again and does not want surgery at this time. * Zofran for nausea * IVF with D5 1/2NS * Pain control 1 mg Morphine IV Q6h (2) 16 weeks gestation of Assessment/Plan: vitamin. Visit type - Emergency Visit Emergency Visit: Yes ED Registration Date: 01/15/18 Care time: The patient presented to the Emergency Department on the above date and was hospitalized for further evaluation of their emergent condition. - New Patient This patient is new to me today: No - Critical Care Critical Care patient: No
[2018-01-19] MEDS: D5-1/2NS+10 MEQ KCL - 10 MEQ/1,000 ML INFUS.BAG IV SCH (06:10)
[2018-01-19 07:46] LABS: BASO % 0.4 % (0-2.0); EOS % 2.2 % (0-4.5); HEMATOCRIT 30.1 % (32.4-45.2); HEMOGLOBIN 10.8 GM/dL (10.7-15.3); LYMPH % 20.5 % (8-40); MCH 30.1 pg (25.7-33.7); MCHC 35.7 g/dl (32.0-36.0); MEAN CELL VOLUME 84.3 fl (80-96); MEAN PLT VOLUME 10.2 fl (7.5-11.1); MONO % 6.1 % (3.8-10.2); NEUT % 70.8 % (42.8-82.8); PLATELET COUNT 222 K/MM3 (134-434); RBC 3.57 M/mm3 (3.60-5.2); RDW 13.3 % (11.6-15.6); WHITE BLOOD COUNT 9.4 K/mm3 (4.0-10.0)
[2018-01-19 07:55] VITALS: TEMP 98.2
[2018-01-19 08:52] LABS: ALBUMIN 2.6 g/dl (3.4-5.0); ALK PHOS 58 U/L (45-117); ANION GAP 12 MMOL/L (8-16); BILIRUBIN,TOTAL 0.3 mg/dL (0.2-1); BLOOD UREA NITROGEN 5 mg/dL (7-18); CALCIUM 7.9 mg/dL (8.5-10.1); CHLORIDE 107 mmol/L (98-107); CO2 18 mmol/L (21-32); CREATININE 0.4 mg/dL (0.55-1.3); GLUCOSE,RANDOM 81 mg/dL (74-106); POTASSIUM 3.7 mmol/L (3.5-5.1); SGOT/AST 8 U/L (15-37); SGPT/ALT 14 U/L (13-61); SODIUM 137 mmol/L (136-145)
[2018-01-19] MEDS ORDERED: cefTRIAXone SODIUM 1 GM VIAL ONE (10:23)
[2018-01-19] MEDS ORDERED: PT OWN MED DRAWER 7, Y5N ONE (10:23)
[2018-01-19] MEDS ORDERED: DEXTROSE 5%-WATER - 50 ML IVPB ONE (10:24)
[2018-01-19] MEDS: PRENATAL VITAMINS W/ FOLIC ACID TABLET (FP) PO SCH (10:44)
[2018-01-19] MEDS: CEFTRIAXONE 1 GM in DEXTROSE 5%-WATER - 50 ML IVPB SCH (10:45)
[2018-01-19] MEDS: FAMOTIDINE 20 MG/50 ML IVPB 20 MG/50 ML MG IVPB SCH (10:45)
[2018-01-19 10:55] VITALS: BP 117/56; PULSE 85
--- NOTE | 2018-01-19 11:11 | DS ---
Physical Exam: SUBJECTIVE: Patient seen and examined at bedside. No overnight events. No new complaints. Ate low fat diet with no pain. Denies CP,PALUMBO, SOB, palpitations, fever or chills. OBJECTIVE: Vital Signs Period Temp Pulse Resp BP Sys/Wilson Pulse Ox Last 24 Hr 97.4 F-98.7 F 69-85 18-20 96-107/46-61 99-99 GENERAL: AAOx3 ,NAD HEAD: NCAT EYES: PERRL, EOMI, sclera anicteric, conjunctiva clear. No ptosis. ENT: moist mucous membranes. LUNGS: CTAB, no wheezes, no crackles, no accessory muscle use. HEART:RRR, S1, S2 without murmur, rub or gallop. ABDOMEN: Soft, RUQ tenderness resolved, normoactive bowel sounds, no guarding, no rebound, Gravid uterus. EXTREMITIES: 2+ pulses, warm, well-perfused, no edema. NEUROLOGICAL: Cranial nerves II through XII grossly intact. Normal speech, gait not observed. PSYCH: Normal mood, normal affect. SKIN: Warm, dry, normal turgor, no rashes or lesions noted LABS Laboratory Results - last 24 hr 01/19/18 01/19/18 06:15 06:15 WBC 9.4 RBC 3.57 L Hgb 10.8 Hct 30.1 L MCV 84.3 MCH 30.1 MCHC 35.7 RDW 13.3 Plt Count 222 MPV 10.2 Absolute Neuts (auto) 6.7 Neutrophils % 70.8 Lymphocytes % 20.5 Monocytes % 6.1 Eosinophils % 2.2 Basophils % 0.4 Nucleated RBC % 0 Sodium 137 Potassium 3.7 Chloride 107 Carbon Dioxide 18 L Anion Gap 12 BUN 5 L Creatinine 0.4 L Creat Clearance w eGFR > 60 Random Glucose 81 Calcium 7.9 L Total Bilirubin 0.3 AST 8 L ALT 14 Alkaline Phosphatase 58 Total Protein 6.0 L Albumin 2.6 L HOSPITAL COURSE: 17 yrs old F 16 wks lives with family presened to ED with sudden onset sever RT UQ and epigastric pain. US did not shows sign of acute cholecystitis but did show stones. She was started on IV Metronidazole and Ceftriaxone. IVF and zofran(nausea) and morphine for pain. Evaluated by surgery but she declined surgery at this time. Diet was advanced and tolerated. Pain resolved and able to tolerate low fat diet. Instructed to follow up with OB and PCP in one week. Sent home with 7 day course of Augmentin and Zofran for nausea. She is stable for discharge home. Date of Admission:01/15/18 Date of Discharge: 01/19/18 Minutes to complete discharge: 40 Discharge Summary Reason For Visit: BILIARY COLIC Current Active Problems 16 weeks gestation of (Acute) Abdominal pain (Acute) Biliary colic (Acute) Nausea & vomiting (Acute) Obesity (BMI 30.0-34.9) (Acute) Condition: Improved - Instructions Diet, Activity, Other Instructions: You have been seen and treated for biliary colic during your . You will be sent with antibiotics Augmentin twice a day for 7 days. Also a prescription for nausea medication has been sent to your pharmacy. You can resume a low fat/cholesterol diet. Try to avoid fatty foods as this may increase your pain. Increase your activity as tolerated. Resume your vitamins. Follow up with you primary doctor and OBGYN in one week. If you have increase of pain or you develop fever/chills please return to ER immediately. Referrals: Yadiel Giron MD [Primary Care Provider] - Disposition: HOME - Home Medications Comprehensive Discharge Medication List: Ambulatory Orders No122/Iron/Folic Acid [ Multi Tablet] 1 each PO DAILY 01/15/18 Amox-Tr/K Cl [Augmentin - 875Mg Tablet] 1 tab PO BID #14 tablet 01/19/18 Ondansetron HCl [Zofran] 4 mg PO Q6H PRN #10 tablet 01/19/18 Problem List - Problems (1) Biliary colic (2) 16 weeks gestation of This patient is new to me today: No Emergency Visit: Yes ED Registration Date: 01/15/18 Care time: The patient presented to the Emergency Department on the above date and was hospitalized for further evaluation of their emergent condition. Critical Care patient: No - Discharge Referral Referred to [facility] No
--- NOTE | 2018-01-19 11:49 | PN ---
Teaching Attending Note Name of Resident: Tru Richards ATTENDING PHYSICIAN STATEMENT I saw and evaluated the patient. I reviewed the resident's note and discussed the case with the resident. I agree with the resident's findings and plan as documented. SUBJECTIVE: Ms Camilo is without complaint. No cp, sob, n/v, abd pain, or any other concerns. Tolerating diet. OBJECTIVE: Gen: nad Pulm: ctab w/o w/r/r CV: rrr w/o m/r/g Abd: +bs, s/nt/nd Ext: no c/c/e ASSESSMENT AND PLAN: Ms Camilo is a very pleasant 17 year old female who came in with biliary colic secondary to cholelithiasis. She was placed on antibiotics and seen by surgery. Conservative management was initiated and patient improved. Her diet was advanced and she is tolerating solid food. She is safe for discharge home. Patient made aware that if problem recurs she should present to a tertiary care center for surgical intervention as will be high risk as she is . Problem List - Problems (1) Biliary colic Code(s): K80.50 - CALCULUS OF BILE DUCT W/O CHOLANGITIS OR CHOLECYST W/O OBST (2) 16 weeks gestation of Code(s): Z3A.16 - 16 WEEKS GESTATION OF (3) Abdominal pain Code(s): R10.9 - UNSPECIFIED ABDOMINAL PAIN Qualifiers: Abdominal location: unspecified location Qualified Code(s): R10.9 - Unspecified abdominal pain (4) Nausea & vomiting Code(s): R11.2 - NAUSEA WITH VOMITING, UNSPECIFIED (5) Obesity (BMI 30.0-34.9) Code(s): E66.9 - OBESITY, UNSPECIFIED
== END 2018-01-19 14:25 | disposition home or self-care (01) | DRG 566 ==
LOC: JER 04:34 → JERBED 09:51 → J5S 20:29
PROVIDERS: ADMIT Internal Medicine; ATTEND Internal Medicine
DX: O99.612 Diseases of the digestive system complicating pregnancy, second trimester (principal); K80.50 Calculus of bile duct without cholangitis or cholecystitis without obstruction; O99.212 Obesity complicating pregnancy, second trimester; E66.9 Obesity, unspecified; Z3A.16 16 weeks gestation of pregnancy; Z68.52 Body mass index [BMI] pediatric, 5th percentile to less than 85th percentile for age
CPT/HCPCS: 36415; 76705-TC; 76815-TC; 80048; 80053; 81003; 81015; 82550; 83036; 83690; 83735; 84100; 84484; 84702; 84703; 85025; 85610; 85730; 86850; 86900; 86901; 87086; 90686; 99285-25; G0008; J0131; Q0162

== ENCOUNTER 2018-06-19 05:25 | Inpatient (IN) | payer OTHER ==
[2018-06-19] MEDS ORDERED: DEXTROSE 5%-LACTATED RINGERS 1,000 ML IV ONE (06:00)
[2018-06-19 06:55] VITALS: BMI 34.9
[2018-06-19] MEDS ORDERED: TUBERCULIN PPD 5 TU/0.1ML SYRINGE (IN PATIENT USE ONLY) ID ONE (07:01)
[2018-06-19 08:07] LABS: BASO % 0.5 % (0-2.0); EOS % 1.3 % (0-4.5); HEMOGLOBIN 9.2 GM/dL (10.7-15.3); LYMPH % 21.8 % (8-40); MCH 23.8 pg (25.7-33.7); MEAN CELL VOLUME 72.3 fl (80-96); MEAN PLT VOLUME 9.2 fl (7.5-11.1); NEUT % 68.4 % (42.8-82.8); PLATELET COUNT 244 K/MM3 (134-434); RBC 3.87 M/mm3 (3.60-5.2); WHITE BLOOD COUNT 7.8 K/mm3 (4.0-10.0)
[2018-06-19 08:22] LABS: CALCIUM 8.4 mg/dL (8.5-10.1); CREATININE 0.5 mg/dL (0.55-1.3); POTASSIUM 3.8 mmol/L (3.5-5.1)
[2018-06-19] MEDS ORDERED: PROMETHAZINE HCL 25 MG/1 ML VIAL IVPUSH ONE (08:22)
[2018-06-19] MEDS ORDERED: BUTORPHANOL TARTRATE 1 MG/ML VIAL IVPB PRN (08:29)
--- NOTE | 2018-06-19 08:29 | HP ---
Past Medical History - Admission History of Present Illness: 17yo @ 39wks here with SROM 430AM, clears. No VB/LOF. 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: Alzheimer's, CVA, Dementia, Migraine, Multiple Sclerosis, Peripheral Neuropathy, Parkinson's, Seizure, Syncope, TIA, Vertigo, Other Cardiovascular: No: AFIB, Aneurysm, Aortic Insufficiency, Aortic Stenosis, CAD, CHF, Deep Vein Thrombosis, HTN, Hyperlipdemia, [place], Mitral Insufficiency, Mitral Stenosis, Murmur, Pulmonary Hypertension, Other Pulmonary: No: Asthma, Bronchitis, Cancer, COPD, O2 Dependent, Pneumonia, Previously Intubated, Pulmonary Embolus, Pulmonary Fibrosis, Sleep Apnea, Other Gastrointestinal: No: Ascites, Cancer, Constipation, Crohn's Disease, Diverticulitis, Diverticulosis, Esophageal Varices, Gastritis, GERD, GI Bleed, Hemorrhoids, Hiatal Hernia, Inflamatory Bowel Disease, Irritable Bowel Disease, Pancreatitis, Peptic Ulcer Disease, Ulcerative Colitis, Other Hepatobiliary: No: Cirrhosis, Cholelithiasis, Cholecystitis, Choledocholithiasis , Hepatitis A, Hepatitis B, Hepatitis C, Other Renal/: No: Renal Failure, Renal Inusuff, BPH, Cancer, Hematuria, Hemodialysis , Neurogenic Bladder, Renal Calculi, UTI, Other Reproductive: No: Ectopic , Endometriosis, Fibroids, PID, Polycystic Ovary Syndrome, Postmenopausal, Other ...: 1 ...Para: 0 ...Term: 0 ...: 0 ...Spon : 0 ...Induced : 0 ...Multiple Gestation: 0 ... Weeks Gestation by Dates: 39 ...EDC by Dates: 06/26/18 ...EDC by Sono: 06/26/18 Heme/Onc: Yes: Anemia - Past Surgical History Past Surgical History: Yes: None, Appendectomy Hx Myomectomy: No Hx Transabdominal Cerclage: No - Advance Directives Advance Directives: No: Living Will, Health Care Proxy, DNR, Organ Donor, Tissue Donor, MOLST - Smoking History Smoking history: Never smoked Have you smoked in the past 12 months: No - Alcohol/Substance Use Hx Alcohol Use: No - Social History Usual Living Arrangement: Yes: Alone ADL: Independent History of Recent Travel: No Home Medications - Allergies Allergies/Adverse Reactions: Allergies Allergy/AdvReac Type Severity Reaction Status Date / Time No Known Allergies Allergy Verified 01/15/18 05:13 - Home Medications Home Medications: Ambulatory Orders Pnv No.95/Ferrous Fum/Folic AC [ Formula] 1 each PO DAILY 06/19/18 Physical Exam - Maternity Vital Signs: Vital Signs Temperature 98.4 F 06/19/18 06:43 Pulse Rate 80 06/19/18 06:43 Respiratory Rate 20 06/19/18 06:43 Blood Pressure 123/78 06/19/18 06:43 O2 Sat by Pulse Oximetry (%) Constitutional: Yes: Well Nourished, No Distress, Calm - Abdominal Exam/OB Number of Fetuses: Single Presentation: Vertex Contractions: No Category: I Accelerations: None Decelerations: None - Vaginal Exam/OB Vaginal Bleediing: No Speculum Exam: No Dilatation (cm): 2 Effacement (%): 50 Amniotic Membrane Status: Ruptured Nitrazine Test: Positive Amniotic Fluid: Yes: Clear Presentation: Vertex/Position Station: -3 - Physical Exam Edema: No - Labs Lab Results: CBC, BMP 06/19/18 07:40 06/19/18 07:40 Problem List - Problems (1) SROM (spontaneous rupture of membranes) Code(s): [id number] - Assessment/Plan 17yo @ 39wks here with SROM Admit to L&D NPO, IVFs GBS neg Cytotec/Pitocin Stadol/Epidural Cat I tracing Anticipate DENA Ely MD
[2018-06-19] MEDS ORDERED: BUTORPHANOL TARTRATE 1 MG/ML VIAL IVPB SCH (08:30)
[2018-06-19 08:32] LABS: INR 0.92 (0.83-1.09); PROTHROMBIN TIME (PATIENT) 10.8 SEC (9.7-13.0)
[2018-06-19 08:35] LABS: ACTIVATED PTT 27.8 SECONDS (25.2-36.5)
[2018-06-19] MEDS: MISOPROSTOL 100 MCG TABLET PO SCH ×3 (09:26→23:01)
[2018-06-19] MEDS: ELECTROLYTE-148 SOLN 1,000 ML IV SCH (14:05)
[2018-06-19] MEDS ORDERED: OXYTOCIN 30 UNITS in 0.9% NS 30 UNIT/500 ML INFUS.BAG IVPB ONE (15:15)
--- NOTE | 2018-06-19 15:16 | PN ---
Ante-Partal Exam - Subjective Subjective: mild discomfort Vital Signs: Vital Signs Temperature 98.2 F 06/19/18 14:00 Pulse Rate 64 06/19/18 14:00 Respiratory Rate 20 06/19/18 14:00 Blood Pressure 119/66 06/19/18 14:00 O2 Sat by Pulse Oximetry (%) - Contractions Regularity: Irregular - Exam during Labor Heart Rate: 145 (reactive) Variability: Moderate Category: I Monitor Accelerations: Present Monitor Decelerations: None Exam: Vaginal (/-3) Dilatation (cm): 4 Effacement (%): 60 Amniotic Membrane Status: Leaking Presentation: Vertex Station: -3 (PROM term and reassuring anfd maternal statuses) - Assessment/Plan Assessment/Plan: -Start pitocin augmentation -continuous monitoring
[2018-06-19] MEDS: OXYTOCIN 30 UNITS in 0.9% NS 30 UNIT/500 ML INFUS.BAG IVPB SCH (15:20)
[2018-06-19] MEDS ORDERED: BUTORPHANOL TARTRATE 2 MG/ML VIAL ONE (17:44)
[2018-06-19] MEDS ORDERED: PROMETHAZINE HCL 25 MG/1 ML VIAL ONE (17:44)
--- NOTE | 2018-06-19 17:56 | PN ---
Progress Note, Labor Vaginal Exam #1 Labor Exam Date: 06/19/18 Labor Exam Time: 17:30 Heart Rate (range): reactive Dilatation: 5 Effacement (%): 70 Amniotic Membrane Status: Leaking Presentation: Vertex/Position Station: -3 (Active labor on pitocin 3mU/min, FHT is reactive, desiring IV pain control -IV pain control is OK)
--- NOTE | 2018-06-19 18:17 | PN ---
Ante-Partal Exam - Subjective Subjective: patient evaluated for pain Vital Signs: Vital Signs Temperature 98.0 F 06/19/18 16:00 Pulse Rate 66 06/19/18 16:00 Respiratory Rate 20 06/19/18 16:00 Blood Pressure 127/74 06/19/18 16:00 O2 Sat by Pulse Oximetry (%) Headache: No Visual changes: No Right upper quadrant pain: No - Contractions Contractions: Yes Regularity: Regular - Exam during Labor Heart Rate: 0 (reactive) Variability: Moderate Category: I (reactive) Monitor Accelerations: Present Monitor Decelerations: None Exam: Vaginal Dilatation (cm): 5 Effacement (%): 70 Amniotic Membrane Status: Leaking Amniotic Fluid: Clear Station: -3
--- NOTE | 2018-06-19 19:55 | PN ---
Ante-Partal Exam - Subjective Subjective: Examined for progression of labor Vital Signs: Vital Signs Temperature 98.4 F 06/19/18 18:00 Pulse Rate 80 06/19/18 19:00 Respiratory Rate 20 06/19/18 19:00 Blood Pressure 142/82 06/19/18 19:00 O2 Sat by Pulse Oximetry (%) Bleeding: No Headache: No Visual changes: No Right upper quadrant pain: No - Contractions Contractions: Yes Regularity: Regular Intensity: Mild/Mod Monitor Mode: External - Exam during Labor Heart Rate: 145 (reactive) Variability: Moderate Category: I Monitor Accelerations: Present Monitor Decelerations: None Exam: Vaginal Dilatation (cm): 7 Effacement (%): 80 Station: -2 Remarks: asynclitic - Assessment/Plan Assessment/Plan: Increase pit and continue augmentation of labor
--- NOTE | 2018-06-19 21:23 | PN ---
Ante-Partal Exam - Subjective Subjective: patient evaluated for pain Vital Signs: Vital Signs Temperature 98.5 F 06/19/18 21:00 Pulse Rate 72 06/19/18 21:00 Respiratory Rate 20 06/19/18 21:00 Blood Pressure 136/63 06/19/18 21:00 O2 Sat by Pulse Oximetry (%) Bleeding: No Headache: No Visual changes: No Right upper quadrant pain: No - Contractions Contractions: Yes Regularity: Regular Intensity: Moderate - Exam during Labor Heart Rate: 125 Variability: Moderate Category: I Monitor Accelerations: Present Monitor Decelerations: None Exam: Vaginal Amniotic Membrane Status: Leaking Presentation: Vertex Station: -2 Remarks: Asynclitic, OP - Assessment/Plan Assessment/Plan: 17 y/o G1 @ 39+wks, active labor and pitocin augmentation on pitocin 4mU/min, FHT cat I, patient is requesting epidural -Epidural is ok -Continue augmentation -Re-evaluate accordingly
[2018-06-19] MEDS ORDERED: FENTANYL/BUPIVACAINE/NS/PF - PCEA - 50 ML DISP.SYRIN EP ONE (21:26)
[2018-06-19] MEDS ORDERED: BUPIVACAINE HCL/PF 0.25% (2.5MG/ML) 10 ML VIAL ONE (21:37)
[2018-06-19] MEDS: FENTANYL/BUPIVACAINE/NS/PF - PCEA - 50 ML DISP.SYRIN EP SCH (22:00)
[2018-06-19] MEDS ORDERED: NALOXONE HCL 0.4 MG/ML VIAL IVPUSH PRN (22:01)
--- NOTE | 2018-06-19 23:59 | PN ---
Ante-Partal Exam - Subjective Subjective: Patient evaluated for post-epidural check Vital Signs: Vital Signs Temperature 98.4 F 06/19/18 22:00 Pulse Rate 77 06/19/18 23:00 Respiratory Rate 18 06/19/18 23:00 Blood Pressure 113/66 06/19/18 23:00 O2 Sat by Pulse Oximetry (%) 100 06/19/18 23:00 Bleeding: No Headache: No Visual changes: No Right upper quadrant pain: No - Contractions Contractions: Yes Regularity: Regular Intensity: Mild Monitor Mode: External - Exam during Labor Heart Rate: 145 (reactive) Variability: Moderate Category: I Monitor Accelerations: Present Monitor Decelerations: None Exam: Vaginal Dilatation (cm): AL Effacement (%): 100 Amniotic Membrane Status: Leaking Station: 0 Remarks: Asynclitic - Assessment/Plan Assessment/Plan: Continue pitocin augmentation Anticipate VD
--- NOTE | 2018-06-20 01:32 | PN ---
Ante-Partal Exam - Subjective Subjective: Patient evaluated for progression of labor Vital Signs: Vital Signs Temperature 98.4 F 06/19/18 22:00 Pulse Rate 88 06/20/18 01:00 Respiratory Rate 18 06/20/18 01:00 Blood Pressure 118/65 06/20/18 01:00 O2 Sat by Pulse Oximetry (%) 97 06/20/18 01:00 Bleeding: No Headache: No Visual changes: No Right upper quadrant pain: No - Contractions Contractions: Yes Regularity: Regular - Exam during Labor Heart Rate: 140 (reactive) Variability: Moderate Category: I Monitor Accelerations: Present Monitor Decelerations: None Exam: Vaginal Dilatation (cm): 10 Effacement (%): 100 Amniotic Membrane Status: Leaking Presentation: Vertex Station: 0 Remarks: asynclitic - Assessment/Plan Assessment/Plan: 17 y/o G1 @ 39.4wks, second stage of labor, FHT cat I, pitocin at 7mU/min, S/P epidural and comfortable -Continue augmentation -positional change -Re-evaluate accordingly
[2018-06-20] MEDS ORDERED: OXYTOCIN 20 UNITS in 0.9% NS 20 UNIT/1,000 ML INFUS.BAG IV ONE (02:31)
--- NOTE | 2018-06-20 02:39 | PN ---
Ante-Partal Exam - Subjective Subjective: Patient evaluated for progression of labor Vital Signs: Vital Signs Temperature 98.9 F 06/20/18 02:00 Pulse Rate 88 06/20/18 01:00 Respiratory Rate 18 06/20/18 01:00 Blood Pressure 118/65 06/20/18 01:00 O2 Sat by Pulse Oximetry (%) 97 06/20/18 01:00 Bleeding: No Headache: No Visual changes: No Right upper quadrant pain: No - Contractions Contractions: Yes Regularity: Regular Intensity: Moderate Monitor Mode: External - Exam during Labor Heart Rate: 140 (reactive) Variability: Moderate Category: I Monitor Accelerations: Present Monitor Decelerations: None Exam: Vaginal Dilatation (cm): 10 Effacement (%): 100 Amniotic Membrane Status: Leaking Presentation: Vertex Station: +2 - Assessment/Plan Assessment/Plan: Anticipate VD D/C epidural Initiate maternal expulsive efforts
[2018-06-20] MEDS: OXYTOCIN 20 UNITS in 0.9% NS 20 UNIT/1,000 ML INFUS.BAG IV SCH ×2 (04:00→07:30)
[2018-06-20] MEDS ORDERED: WITCH HAZEL 50% (TUCKS) 40 PAD/JAR PAD TP PRN (04:08)
[2018-06-20] MEDS ORDERED: BISACODYL 10 MG SUPP.RECT RC PRN (04:08)
[2018-06-20] MEDS ORDERED: BENZOCAINE 28 GM HEMORRHOIDAL OINTMENT TP PRN (04:08)
[2018-06-20] MEDS ORDERED: BENZOCAINE 20% 57 GM BOTTLE TP PRN (04:08)
--- NOTE | 2018-06-20 04:38 | PN ---
Delivery - Delivery Vaginal Delivery: No Problems (Head delivered with maternal expulsive efforts, OA. Shoulders delivered without difficulty followed by the rest of the body. Cord clamped and cut. Infant placed onto mother's chest. Segment of cord for blood obtained. Placenta delivered spontaneously and intact. Exam revealed excellent hemostasis and only periurethral abrasion. 1000mcg misoprostol administered prophylactically per rectum. Sponge/instrument count correct x 2 and confirmed by nurse.), Spontaneous Type of Anesthesia: Epidural Episiotomy/Laceration: None EBL (cc): 350 Delivery, Single - [place] Feeding Plan Initial Plan: Elected not to breastfeed exclusively throughout hospitalization
[2018-06-20] MEDS ORDERED: MISOPROSTOL 100 MCG TABLET PV ONE (06:33)
[2018-06-20] MEDS: PRENATAL VITAMINS W/ FOLIC ACID TABLET (FP) PO SCH (09:00)
--- NOTE | 2018-06-21 04:15 | PN ---
Post Progress Note Post Day: 1 Type of Delivery: Vital Signs: Vital Signs Temperature 98.2 F 06/21/18 02:00 Pulse Rate 82 06/21/18 02:00 Respiratory Rate 18 06/21/18 02:00 Blood Pressure 102/48 L 06/21/18 02:00 O2 Sat by Pulse Oximetry (%) 100 06/20/18 04:45 Breast Exam: Yes: Soft Uterus: Yes: Fundus Firm Abdomen/GI: Yes: Abdomen soft Lochia: Yes: Rubra Lochia, amount: Small Extremities: Yes: Calves non-tender Perineum: Yes: Intact Activity: Ambulating - Labs Labs: CBC WBC 7.8 K/mm3 (4.0-10.0) 06/19/18 07:40 RBC 3.87 M/mm3 (3.60-5.2) 06/19/18 07:40 Hgb 9.2 GM/dL (10.7-15.3) L 06/19/18 07:40 Hct 28.0 % (32.4-45.2) L 06/19/18 07:40 MCV 72.3 fl (80-96) L 06/19/18 07:40 MCH 23.8 pg (25.7-33.7) L D 06/19/18 07:40 MCHC 33.0 g/dl (32.0-36.0) 06/19/18 07:40 RDW 18.0 % (11.6-15.6) H 06/19/18 07:40 Plt Count 244 K/MM3 (134-434) 06/19/18 07:40 MPV 9.2 fl (7.5-11.1) 06/19/18 07:40 Absolute Neuts (auto) 5.3 K/mm3 (1.5-8.0) 06/19/18 07:40 Neutrophils % 68.4 % (42.8-82.8) 06/19/18 07:40 Lymphocytes % 21.8 % (8-40) 06/19/18 07:40 Monocytes % 8.0 % (3.8-10.2) 06/19/18 07:40 Eosinophils % 1.3 % (0-4.5) 06/19/18 07:40 Basophils % 0.5 % (0-2.0) 06/19/18 07:40 Nucleated RBC % 0 % (0-0) 06/19/18 07:40 Assessment/Plan as above oob reg diet continue care
[2018-06-21 08:11] LABS: BASO % 0.4 % (0-2.0); HEMATOCRIT 25.7 % (32.4-45.2); HEMOGLOBIN 8.2 GM/dL (10.7-15.3); LYMPH % 21.7 % (8-40); MCH 23.3 pg (25.7-33.7); MCHC 31.9 g/dl (32.0-36.0); MEAN CELL VOLUME 73.2 fl (80-96); MEAN PLT VOLUME 9.2 fl (7.5-11.1); MONO % 6.6 % (3.8-10.2); NEUT % 70.3 % (42.8-82.8); PLATELET COUNT 219 K/MM3 (134-434); RBC 3.52 M/mm3 (3.60-5.2); RDW 18.3 % (11.6-15.6); WHITE BLOOD COUNT 11.8 K/mm3 (4.0-10.0)
[2018-06-21] MEDS: IBUPROFEN 600 MG TABLET (FP) PO PRN (08:27)
[2018-06-21] MEDS: ACETAMINOPHEN 325 MG TABLET (FP) PO PRN (08:28)
[2018-06-21] MEDS: PRENATAL VITAMINS W/ FOLIC ACID TABLET (FP) PO SCH (10:30)
[2018-06-22] MEDS: ELECTROLYTE-148 SOLN 1,000 ML IV SCH ×2 (00:30→00:34)
[2018-06-22] MEDS: FENTANYL/BUPIVACAINE/NS/PF - PCEA - 50 ML DISP.SYRIN EP SCH ×2 (00:31→00:34)
[2018-06-22] MEDS: OXYTOCIN 20 UNITS in 0.9% NS 20 UNIT/1,000 ML INFUS.BAG IV SCH (00:31)
[2018-06-22] MEDS: OXYTOCIN 30 UNITS in 0.9% NS 30 UNIT/500 ML INFUS.BAG IVPB SCH (00:31)
--- NOTE | 2018-06-22 07:55 | DS ---
Physical Examination Vital Signs: Vital Signs Temperature 98.3 F 06/21/18 22:00 Pulse Rate 87 06/21/18 22:00 Respiratory Rate 18 06/21/18 22:00 Blood Pressure 128/69 06/21/18 22:00 O2 Sat by Pulse Oximetry (%) 100 06/20/18 04:45 Constitutional: Yes: Well Nourished, No Distress, Calm Eyes: Yes: WNL, Conjunctiva Clear, EOM Intact HENT: Yes: WNL, Atraumatic, Normocephalic Neck: Yes: WNL, Supple, Trachea Midline Cardiovascular: Yes: WNL, Regular Rate and Rhythm Respiratory: Yes: WNL, Regular, CTA Bilaterally Gastrointestinal: Yes: WNL, Normal Bowel Sounds Musculoskeletal: Yes: WNL Extremities: Yes: WNL Edema: No Integumentary: Yes: WNL Neurological: Yes: WNL, Alert, Oriented ...Motor Strength: WNL Psychiatric: Yes: WNL Labs: CBC, BMP 06/21/18 07:55 06/19/18 07:40 Discharge Summary Reason For Visit: LABOR ADMIT Current Active Problems SROM (spontaneous rupture of membranes) (Acute) Procedures: Principal: Other Procedures: Hospital Course: Patient presented with SROM She had an uncomplicated She met all milestones She was discharged home PPD#2 M. MD [facility] Condition: Stable - Instructions Diet, Activity, Other Instructions: Regular Diet Referrals: Connor Moncada MD [Staff Physician] - Disposition: HOME - Home Medications Comprehensive Discharge Medication List: Ambulatory Orders Pnv No.95/Ferrous Fum/Folic AC [ Formula] 1 each PO DAILY 06/19/18 Ibuprofen 600 mg PO Q6H PRN #30 tablet 06/21/18
[2018-06-22 08:13] VITALS: BP 119/66; PULSE 88; TEMP 98.4
[2018-06-22] MEDS: ACETAMINOPHEN 325 MG TABLET (FP) PO PRN (09:07)
[2018-06-22] MEDS: PRENATAL VITAMINS W/ FOLIC ACID TABLET (FP) PO SCH (09:08)
[2018-06-22] MEDS: IBUPROFEN 600 MG TABLET (FP) PO PRN (09:08)
== END 2018-06-22 12:05 | disposition home or self-care (01) | DRG 560 ==
LOC: JLDR 05:25 → J3W 06-20 05:06
PROVIDERS: ADMIT Obstetrics & Gynecology; ATTEND Obstetrics & Gynecology
PROC: 3E0R3BZ Introduction of Anesthetic Agent into Spinal Canal, Percutaneous Approach (ICD-10-PCS; 2018-06-19)
PROC: 10E0XZZ Delivery of Products of Conception, External Approach (ICD-10-PCS; principal; 2018-06-20)
DX: O80 Encounter for full-term uncomplicated delivery (principal); Z3A.39 39 weeks gestation of pregnancy; Z37.0 Single live birth
CPT/HCPCS: 36415; 59409; 80048; 85025; 85610; 85730; 86593; 86850; 86900; 86901